=== PATIENT | male | born 1980 | race African-American/Black ===

== ENCOUNTER 2024-04-24 16:47 | Emergency (ER) | payer OTHER ==
[2024-04-24 16:54] VITALS: BP 133/71; PULSE 64; RESP 18; TEMP 98.8; BMI 25.6
[2024-04-24] MEDS ORDERED: LIDOCAINE HCL 1%, 10 MG/ML (20ML VIAL) ONE (19:09)
[2024-04-24] MEDS: LIDOCAINE HCL 1%, 10 MG/ML (50 mL VIAL) SQ ONE (19:14)
[2024-04-24] MEDS ORDERED: DIPHTH,PERTUSS(ACELL),TET 0.5 ML DISP.SYRIN IM ONE (19:19)
[2024-04-24] MEDS: DIPHTH,PERTUSS(ACELL),TET 0.5 ML DISP.SYRIN IM ONE (19:48)
== END 2024-04-24 20:15 | disposition home or self-care (01) ==
LOC: JER 16:47 → JERFT 16:47
PROC: 0XQNXZZ Repair Right Index Finger, External Approach (ICD-10-PCS; principal; 2024-04-24)
PROC: 3E0234Z Introduction of Serum, Toxoid and Vaccine into Muscle, Percutaneous Approach (ICD-10-PCS; 2024-04-24)
DX: S61.210A Laceration without foreign body of right index finger without damage to nail, initial encounter (principal); S61.212A Laceration without foreign body of right middle finger without damage to nail, initial encounter; W26.0XXA Contact with knife, initial encounter; Z23 Encounter for immunization
CPT/HCPCS: 90715; 99284-25